=== PATIENT | female | born 2000 | race Caucasian/White ===

== ENCOUNTER 2024-06-16 11:45 | Emergency (ER) | payer MEDICAID, SELFPAY ==
[2024-06-16 11:53] VITALS: BP 114/81; PULSE 102; RESP 18; TEMP 37; O2SAT 97; BMI 20.6
--- NOTE | 2024-06-16 12:06 | ED_ITS ---
HPI - SOB/Dyspnea General Date Seen: 06/16/24 Chief Complaint: Shortness of Breath/Dyspnea Stated Complaint: Covid + Difficulty breathing Time Seen by Provider: 06/16/24 12:02 Source: patient Mode of arrival: ambulatory Limitations: no limitations History of Present Illness HPI Narrative: Patient is a 23-year-old female presenting to the emergency department for shortness of breath. She states she started having upper respiratory symptoms 3 days ago and has herself for COVID last night since symptoms became worse. She tested positive last night. Today she states she feels like she is unable to catch her breath and is unable to take a deep breath. Occasionally has some mild chest tightness with this. No history of symptoms like this before. No history of heart or lung disease. Denies fevers, weakness, numbness. Has had some chills. Has not had any vomiting but is currently feeling a little bit nauseated. Denies abdominal pain. Had a headache over the weekend but no lo nger has a headache. Denies diarrhea, constipation, dysuria, weakness, numbness, vision changes. No other concerns noted at this time. Related Data Home Medications ?Medication ?Instructions ?Recorded ?Confirmed No Known Home Medications 08/25/23 08/25/23 Allergies Allergy/AdvReac Type Severity Reaction Status Date / Time No Known Drug Allergies Allergy Verified 08/25/23 11:04 Review of Systems Status of ROS: Reports: 10 or more systems reviewed and unremarkable except as noted in History and below Exam Narrative: Exam Narrative: Const: Well-nourished, Well-developed, in mild distress Eyes: PERRL, no conjunctival injection, and symmetrical lids HENT: Atraumatic external nose and ears. Moist mucous membranes. Neck: Symmetric, trachea midline, No thyromegaly. CVS: RRR, No murmurs or gallops. Peripheral pulses 2+ and equal in all extremities RESP: Unlabored respiratory effort. Clear to auscultation bilaterally. GI: Nontender/Nondistended, No rebound or guarding. MSK:Extremities w/o deformity, Normal Active ROM Skin: Warm, Dry. No rashes or lesions. Neuro: Normal Muscle tone, No focal neurological deficits. Psych: Awake, Alert, & Oriented x3. Appropriate mood and affect. Const: Vital Signs, click to edit/add: Vital Signs - 24 hr 06/16/24 11:53 06/16/24 14:03 Temperature 98.6 F Pulse Rate [Pulse Oximeter] 102 H 100 Respiratory Rate 18 12 Blood Pressure [Le ft Upper Arm] 114/81 116/70 Pulse Oximetry 97 97 Oxygen Delivery Me thod Room Air Room Air Course Vital Signs Vital signs: Initial Vital Signs Temperature 98.6 F 06/16/24 11:53 Temperature Source Temporal Artery Scan 06/16/24 11:53 Pulse Rate 102 H 06/16/24 11:53 Respiratory Rate 18 06/16/24 11:53 Blood Pressure 114/81 06/16/24 11:53 Blood Pressure Mean 92 06/16/24 11:53 Blood Pressure Position Supine 06/16/24 11:53 Pulse Oximetry 97 06/16/24 11:53 Oxygen Delivery Method Room Air 06/16/24 11:53 Vital Signs Temperature 98.6 F 06/16/24 11:53 Pulse Rate 102 H 06/16/24 11:53 Respiratory Rate 18 06/16/24 11:53 Blood Pressure 114/81 06/16/24 11:53 Pulse Oximetry 97 06/16/24 11:53 Oxygen Delivery Method Room Air 06/16/24 11:53 Temperature 98.6 F 06/16/24 11:53 Pulse Rate 100 06/16/24 14:03 Respiratory Rate 12 06/16/24 14:03 Blood Pressure 116/70 06/16/24 14:03 Pulse Oximetry 97 06/16/24 14:03 Oxygen Delivery Method Room Air 06/16/24 14:03 MDM - SOB/Dyspnea MDM Narrative Medical decision making narrative: Patient is a 23-year-old female presenting to the emergency department for shortness of breath. Started having COVID symptoms few days ago but felt acutely worse today. Was having some mild associated chest pain over the past few days had comes and goes. Did test positive for COVID yesterday. Were order a D-dimer look for signs of a PE. Also order CBC and BMP. Chest x-ray ordered for signs pneumonia or pneumothorax. At this time aortic dissection or aortic aneurysm seems relatively unlikely considering her vitals are otherwise stable. EKG reviewed by myself shows no concerning abnormalities. Troponin within normal limits. Concern home long symptoms have been going on for do not believe a repeat troponin is necessary. CBC and BMP showed no concerning abnormalities. D-dimer within normal limits and a PE can not be excluded at this time. EKG shows no concerning abnormalities. Chest x-ray reviewed by myself thereafter shows no concerning abnormalities. Her vital signs continue stay stable throughout her time in emergency department and the symptoms are almost certainly from her COVID. She is otherwise doing well at this time and can be discharged home safely. She is agreeable to this plan. Lab Data Labs: Lab Results 06/16/24 06/16/24 Range/Units 12:08 12:30 WBC 9.06 (4.50-11.00) K/uL RBC 4.50 (4.00-5.20) m/uL Hgb 10.7 L (12.0-16.0) gm/dL Hct 35.0 (33.0-51.0) % MCV 78 L (80-100) fL MCH 24 L (26-34) pg MCHC 31 L (32-36) gm/dL RDW Coeff of Michael 15.7 H (11.5-15.5) % Plt Count 311 (140-440) K/uL Neut % (Auto) 74.5 H (42.0-72.0) % Lymph % (Auto) 10.7 L (20-44) % [place] % (Auto) 13.6 H (0.0-11.0) % Eos % (Auto) 0.6 (0.0-7.0) % Baso % (Auto) 0.6 (0.0-3.0) % Neut # (Auto) 6.70 (1.7-7.0) K/uL Lymph # (Auto) 1.00 (0.90-2.90) K/uL [place] # (Auto) 1.20 H (0.00-0.90) K/UL Eos # (Auto) 0.05 (0.00-0.50) K/uL Baso # (Auto) 0.05 (0.00-0.30) K/uL Abs Immat Gran (auto) 0.00 (0.00-0.30) K/uL Imm/Tot Granulo (auto) 0.0 % D-Dimer Quant (PE/DVT) 0.22 (0.00-0.50) ug/ml Sodium 140 (135-149) mmol/L Potassium 3.6 (3.6-5.1) mmol/L Chloride 105 (96-114) mmol/L Carbon Dioxide 26 (20-32) mmol/L Anion Gap 9 (7-15) mEq/L BUN 8 (5-24) mg/dL Creatinine 0.4 L (0.5-1.5) mg/dL Estimated Creat Clear 191.17 Estimated GFR 144 ml/min Glucose 109 (60-115) mg/dL Calcium 9.1 (8.4-10.6) mg/dL HCG, Qual Negative (Negative) POC Troponin I 0.00 L (0.01-0.04) ng/ml Imaging Data Chest x-ray: Attestation: I have reviewed the pertinent imaging results. Radiologist's impression: No acute cardiopulmonary process. Dictated by Henry Deal MD @ 06/16/2024 2:08:26 PM ECG Data Attestation: I personally reviewed and interpreted this ECG as follows: Prior ECG tracings: available for review Interpretation: Normal sinus rhythm with a rate of 82 beats per minute, normal intervals, normal axis, no ST or T-wave abnormalities. Appears similar previous EKG on file Discharge Plan Discharge Clinical Impression: COVID Patient Disposition: Home, Self-Care Condition: Stable Instructions: COVID-19 (Coronavirus Disease 2019) (ED) Additional Instructions: Your symptoms are all likely related to COVID and the should improve with time. Return to emergency department for new or worsening symptoms. Prescriptions: No Action No Known Home Medications Follow Up/Referrals: Provider,Not a Local [Primary Care Provider] - Stand Alone Forms: [facility] Info Instructions
[2024-06-16 12:40] LABS: Basophils Absolute Auto 0.05 K/uL (0.00-0.30); Basophils Percent Auto 0.6 % (0.0-3.0); Eosinophils Absolute Auto 0.05 K/uL (0.00-0.50); Eosinophils Percent Auto 0.6 % (0.0-7.0); Hemoglobin* 10.7 gm/dL (12.0-16.0); Lymphocytes Percent Auto 10.7 % (20-44); Mean Corpuscular HGB Conc 31 gm/dL (32-36); Mean Corpuscular Hemoglobin 24 pg (26-34); Mean Corpuscular Volume 78 fL (80-100); Monocytes Percent Auto 13.6 % (0.0-11.0); Neutrophils Percent Auto 74.5 % (42.0-72.0); Platelet Count* 311 K/uL (140-440); RDW Coefficient of Variation % 15.7 % (11.5-15.5); White Blood Count* 9.06 K/uL (4.50-11.00)
[2024-06-16 12:44] LABS: Slide Review Reflex No
[2024-06-16 13:07] LABS: Chloride* 105 mmol/L (96-114); Potassium* 3.6 mmol/L (3.6-5.1); Sodium* 140 mmol/L (135-149)
[2024-06-16 13:10] LABS: Anion Gap 9 mEq/L (7-15); Blood Urea Nitrogen* 8 mg/dL (5-24); Carbon Dioxide* 26 mmol/L (20-32); Creatinine* 0.4 mg/dL (0.5-1.5); Est. Creatinine Clearance* 191.17; Estimated Glomerular Filt Rate 144 ml/min; Glucose* 109 mg/dL (60-115)
[2024-06-16 13:11] LABS: Calcium* 9.1 mg/dL (8.4-10.6)
[2024-06-16 13:19] LABS: HCG Qualitative Serum* Negative (Negative)
[2024-06-16 13:21] LABS: D Dimer Quantitative* 0.22 ug/ml (0.00-0.50)
--- NOTE | 2024-06-16 13:49 | CRLHL7_ITS ---
For Patients: As a result of the Cures Act, medical imaging exams and procedure reports are released immediately into your electronic medical record. You may view this report before your referring provider. If you have questions, please contact your health care provider. INDICATION: : Shortness of breath COMPARISON: Chest radiograph on August 16, 2011 TECHNIQUE: Two view(s) of the chest FINDINGS: The cardiomediastinal silhouette and pulmonary vasculature are unremarkable. There is no focal airspace consolidation, pleural effusion, or pneumothorax. No displaced fractures. IMPRESSION: No acute cardiopulmonary process. Dictated by Henry Deal MD @ 06/16/2024 2:08:26 PM (Electronically Signed)
[2024-06-16 14:03] VITALS: BP 116/70; PULSE 100; RESP 12; O2SAT 97
== END 2024-06-16 14:28 | disposition home or self-care (01) ==
PROVIDERS: Emergency Provider Student in an Organized Health Care Education/Training Program
DX: U07.1 COVID-19 (principal)
CPT/HCPCS: 36415; 71046; 80048; 84484; 84703; 85025; 85379; 93005; 99283; 99284